=== PATIENT | male | born 1990 | race Caucasian/White ===

== ENCOUNTER 2018-04-10 06:28 | Day surgery (SDC) | payer OTHER ==
--- NOTE | 2018-04-04 13:45 | HP ---
PREOPERATIVE HISTORY AND PHYSICAL: DATE OF ADMISSION/SURGERY: 04/10/18 - OR [facility] DATE OF OFFICE VISIT: 04/04/18 ATTENDING SURGEON: Dr. Delaney Fortune.* (DICTATED BY JOSEF DESIR) PROCEDURE: Right shoulder arthroscopic excision of distal clavicle, decompression, debridement, and possible subpectoral biceps tenodesis. CHIEF COMPLAINT: Right shoulder pain. HISTORY OF PRESENT ILLNESS: Charlie is a 27-year-old male, who presents to the clinic for right shoulder pain due to AC joint arthritis, impingement, and biceps tendinitis. He had a prior right shoulder labral repair. He has failed conservative measures and therefore agreed to undergo right shoulder arthroscopic excision of distal clavicle, decompression, debridement, and possible subpectoral biceps tenodesis with Dr. Fortune on 04/10/18. PAST MEDICAL HISTORY: High cholesterol. PAST SURGICAL HISTORY: Right shoulder surgery, gynecomastia procedure, right knee surgery, and rhinoplasty. The patient denies prior complications with anesthesia. MEDICATIONS: 1. Finasteride 5 mg one-half by mouth daily. 2. Fish oil daily. 3. Vitamin D daily. 4. Iron daily. ALLERGIES: No known drug allergies. FAMILY HISTORY: Positive for diabetes. Denies family history of DVT or PE. SOCIAL HISTORY: He is a student. He quit smoking 7 years ago. He reports occasional alcohol consumption. He is right-hand dominant. REVIEW OF SYSTEMS: A 14-point review of systems was reviewed with the patient. Positive for current complaint, otherwise negative. Denies fever, chills, chest pain, shortness of breath, history of DVT or PE, history of bleeding disorder. PHYSICAL EXAMINATION GENERAL: A 27-year-old well-developed, well-nourished male, in no acute distress. VITAL SIGNS: Height 67.5, weight 159, pulse 72, blood pressure 111/74, temperature 96.5, BMI 24.5. HEENT: Normocephalic, atraumatic. PERRLA. Throat clear. NECK: Supple. PULMONARY: Lungs are clear to auscultation bilaterally. No wheezing, rhonchi, or rales. CARDIAC: Regular rate and rhythm. S1, S2. No murmurs, gallops, or rubs. No edema. ABDOMEN: Positive bowel sounds. Soft, nontender. NEURO: Alert and oriented x3. Cranial nerves grossly intact. MUSCULOSKELETAL: Right upper extremity: Skin is intact. No warmth or erythema. Forward flexion and abduction to 180, external rotation to 75, internal rotation to T10. Tenderness to palpation over the AC joint and bicipital groove. Positive impingement, Speed, [place], [place]. +5/5 strength to rotator cuff testing. +2 radial pulse. Sensation intact to light touch distally. DIAGNOSTIC STUDIES: MR arthrogram revealed superior labral changes, rotator cuff is intact, AC joint arthritis, and fluid along the biceps. IMPRESSION: Right shoulder acromioclavicular joint arthritis, impingement, and biceps tendinitis. PLAN: The patient is scheduled to undergo a right shoulder arthroscopic excision of distal clavicle, decompression, debridement, and possible subpectoral biceps tenodesis with Dr. Fortune on 04/10/18. Percocet will be used for postop pain management and Keflex for antibiotic prophylaxis since he has had prior shoulder surgery. The patient will follow up 10 to 14 days postop for followup and suture removal. JOSEF DESIR [id number]/[facility] #: [id number] ADE
[~2018-04-10 06:28] MED LIST: Buffered Lidocaine 1% SYRIN* 1 ML/SYRINGE INTRADERM ONE; Dexamethasone IV* 4 MG/ML 1 ML (4 MG) IV SLOW PU ONE; Dexamethasone IV* 4 MG/ML 1 ML (4 MG) ONE; Famotidine IV* 10 MG/ML 2 ML (20 mg) IV ONE; Famotidine IV* 10 MG/ML 2 ML (20 mg) ONE; Lactated Ringers 1000 ML Bag* 1,000 ML IV SCH; ceFAZolin 2 GM PREMIX in ORs 2 GM/50 ML BAG IVPB ONE
[2018-04-10] MEDS ORDERED: fentaNYL* 50 MCG/ML 2 ML VIAL (100 MCG VIAL) ONE (07:04)
[2018-04-10] MEDS ORDERED: Midazolam* 1 MG/ML 5 ML VIAL (5 MG) ONE (07:05)
[2018-04-10] MEDS ORDERED: Rocuronium* 10 MG/ML VIAL ONE (07:05)
[2018-04-10] MEDS ORDERED: Ropivacaine* 2 MG/ML 20 ML VIAL (0.2%) ONE (07:17)
[2018-04-10] MEDS ORDERED: Lidocaine 1%* 5 ML VIAL ONE ×2 (07:22→07:23)
[2018-04-10] MEDS ORDERED: ROPIVACAINE 5 MG/ML 30 ML BTL (0.5%) ONE (07:22)
[2018-04-10] MEDS ORDERED: Lidocaine 2% PF * 5 ML VIAL ONE (08:24)
[2018-04-10] MEDS ORDERED: Ondansetron INJ* 2 MG/ML VIAL ONE (08:24)
[2018-04-10] MEDS ORDERED: Propofol* 10 MG/ML 20 ML BTL ONE (08:24)
[2018-04-10] MEDS ORDERED: Acetaminophen TAB* 325 MG PO PRN (08:35)
[2018-04-10] MEDS ORDERED: fentaNYL* 50 MCG/ML 2 ML VIAL (100 MCG VIAL) IV PRN (08:35)
[2018-04-10] MEDS ORDERED: Scopolamine 1.5 mg* PATCH TRANSDERM PRN (08:35)
[2018-04-10] MEDS ORDERED: Ketorolac INJ* 30 MG/ML 1 ML VIAL IV PRN (08:35)
[2018-04-10] MEDS ORDERED: Naloxone* 0.4 MG/ML 1 ML VIAL IV PRN (08:35)
[2018-04-10] MEDS ORDERED: DiMENhydriNATE IV* 50 MG/ML VIAL IV PUSH PRN (08:35)
[2018-04-10] MEDS ORDERED: oxyCODONE/Acetamin 5/325 MG* TAB PO PRN (08:35)
[2018-04-10] MEDS ORDERED: PROCHLORPERAZINE INJ 5 MG/ML 2 ML VIAL IV PRN (08:35)
[2018-04-10] MEDS ORDERED: Neostigmine Methylsulfate* 3 MG/3 ML SYRINGE ONE (08:38)
[2018-04-10] MEDS ORDERED: Glycopyrrolate IV* 0.2 MG/ML 1 ML VIAL ONE (08:39)
[2018-04-10] MEDS ORDERED: methylPREDNISolone ACETATE 80* 80 MG/ML 1 ML VIAL ONE (08:41)
[2018-04-10] MEDS ORDERED: Ketorolac INJ* 30 MG/ML 1 ML VIAL ONE (09:17)
[2018-04-10] MEDS ORDERED: Scopolamine 1.5 mg* PATCH ONE (09:17)
[2018-04-10] MEDS ORDERED: oxyCODONE/Acetamin 5/325 MG* TAB ONE (10:11)
[2018-04-10] MEDS ORDERED: Metoclopramide IV* 5 MG/ML 2 ML VIAL ONE (10:23)
[2018-04-10] MEDS ORDERED: PROCHLORPERAZINE INJ 5 MG/ML 2 ML VIAL ONE (10:24)
[2018-04-10 11:18] VITALS: BP 109/75
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
== END 2018-04-10 11:14 | disposition home or self-care (01) ==
LOC: OREAST 06:28
PROVIDERS: ATTEND Orthopaedic Surgery
DX: M75.41 Impingement syndrome of right shoulder (principal); M19.111 Post-traumatic osteoarthritis, right shoulder; M75.21 Bicipital tendinitis, right shoulder; Z87.891 Personal history of nicotine dependence; G89.18 Other acute postprocedural pain; K21.9 Gastro-esophageal reflux disease without esophagitis
CPT/HCPCS: 88304; A9270-GY; C1776; J0690; J0780; J1040; J1100; J1885; J2250; J2405; J2704; J2710; J2765; J2795; J3010

== ENCOUNTER 2018-11-27 08:40 | Day surgery (SDC) | payer OTHER ==
[~2018-11-27 08:40] MED LIST changes: -Dexamethasone IV* 4 MG/ML 1 ML (4 MG) ONE; -Famotidine IV* 10 MG/ML 2 ML (20 mg) ONE; -ceFAZolin 2 GM PREMIX in ORs 2 GM/50 ML BAG IVPB ONE
[2018-11-27] MEDS ORDERED: ceFAZolin 2 GM in NS PREMIX(*) 2 GM/100 ML BAG IVPB ONE (08:56)
[2018-11-27] MEDS ORDERED: Famotidine IV* 10 MG/ML 2 ML (20 mg) ONE (08:56)
[2018-11-27] MEDS ORDERED: Dexamethasone IV* 4 MG/ML 1 ML (4 MG) ONE (08:56)
[2018-11-27] MEDS ORDERED: fentaNYL* 50 MCG/ML 2 ML VIAL (100 MCG VIAL) ONE (10:51)
[2018-11-27] MEDS ORDERED: Propofol* 10 MG/ML 20 ML BTL ONE (11:02)
[2018-11-27] MEDS ORDERED: Lidocaine 2% PF * 5 ML VIAL ONE (11:02)
[2018-11-27] MEDS ORDERED: ROPIVACAINE 5 MG/ML 30 ML BTL (0.5%) ONE (11:11)
[2018-11-27] MEDS ORDERED: Lidocaine 1% w EPI 1:200,000* SDV 30 ML VIAL ONE (11:11)
[2018-11-27] MEDS ORDERED: Ropivacaine 0.2% * 2 MG/ML VIAL ONE (11:13)
[2018-11-27] MEDS ORDERED: Naloxone* 0.4 MG/ML 1 ML VIAL IV PRN (11:16)
[2018-11-27] MEDS ORDERED: fentaNYL* 50 MCG/ML 2 ML VIAL (100 MCG VIAL) IV PRN (11:16)
[2018-11-27] MEDS ORDERED: DiMENhydriNATE IV* 50 MG/ML VIAL IV PUSH PRN (11:16)
[2018-11-27] MEDS ORDERED: Scopolamine 1.5 mg* PATCH ONE (11:26)
[2018-11-27] MEDS ORDERED: Scopolamine 1.5 mg* PATCH TRANSDERM SCH (12:00)
[2018-11-27] MEDS ORDERED: Ondansetron INJ* 2 MG/ML VIAL ONE (12:05)
[2018-11-27] MEDS ORDERED: Ketorolac INJ* 30 MG/ML 1 ML VIAL ONE (12:05)
[2018-11-27] MEDS ORDERED: oxyCODONE/Acetamin 5/325 MG* TAB ONE (13:19)
[2018-11-27 14:01] VITALS: BP 134/87
--- NOTE | 2018-11-28 04:32 | OP ---
DATE OF OPERATION: 11/27/18 [facility] DATE OF : 86 SURGEON: Delaney Fortune MD. 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 ANESTHESIOLOGIST: Popeye Mancia MD ANESTHESIA: General anesthesia and LMA intubation. PRE-OP DIAGNOSIS: Synovitis of the knee and patellofemoral type of pain. POST-OP DIAGNOSES: 1. Synovitis of the knee and patellofemoral type of pain. 2. Lateral facet compression. OPERATIVE PROCEDURES: 1. Right knee arthroscopy with lysis of adhesions and a small chondroplasty of the medial condyle where the adhesions and scar tissue had rubbed against it. 2. Lateral release. COMPLICATIONS: None. ESTIMATED BLOOD LOSS: Minimal. TOURNIQUET TIME: 0 minutes. IMPLANTS: None. INDICATIONS: Charlie Phipps is a 28-year-old male who has had persistent knee pain for several years. He had a previous right knee arthroscopy with lysis of adhesions and a synovectomy and plica excision. He said he did okay for a while with the knee but then began having pain again anteriorly and on the lateral aspect of the knee. He has failed conservative management. Risks and benefits were discussed at length with the patient and include but are not limited to, bleeding, infection, incomplete relief of symptoms, damage to nerves , vessels, and surrounding structures, wound not healing, risk of DVT. DESCRIPTION OF PROCEDURE: The patient was greeted in the preoperative area by the attending surgeon. Correct extremity was marked and consent was confirmed. The patient was brought back to the operating suite where he was placed in the supine position on the operating table. He then underwent general anesthesia and LMA intubation, after which he was appropriately positioned on the operating table. The an unsterile tourniquet was placed on the right leg and a lateral post positioned. The patient's right leg was then prepped and draped in the usual sterile fashion beginning with chlorhexidine soap, scrub, and alcohol wipe. After an appropriate surgical pause indicating side, site, procedure and administration of antibiotics, the knee was then intraarticularly injected with 1% lidocaine. The anterolateral portal was made using an 11 blade. The scope was inserted in the joint. The knee was examined. The ACL and PCL were intact. The medial meniscus was intact. There was scar tissue that was obviously abrading the medial femoral condyle on the chondral surface which was debrided back. The scar tissue was removed. Hemostatis was obtained using the electrocautery device. There was still some softening of the medial aspect of the medical condyle that was appreciated. The meniscus was intact as well as the medial plateau. The lateral compartment was examined and had grade 0 to 1 changes. The lateral meniscus was intact. The patellofemoral joint was intact and had grade 0 changes, but there was evidence of lateral tracking of the patella as well as of compression of the lateral facet compared to normal knees. After considering the patient's pain and therefore, the decision was made to proceed with lateral release. Therefore, the electrocautery device was used to give him a solid lateral release. The lateral facet was found to be more centrally located afterwards in a more standard manner. The scar tissue was removed and the electrocautery device was used to maintain hemostasis. Final images were obtained. The wounds were copiously irrigated with sterile saline. The knee was thoroughly lavaged. The wounds were irrigated with sterile saline. The portal were closed with 3-0 nylon in an interrupted fashion. Sterile dressings were applied and a Cryo/Cuff. The knee was superficially and intraarticularly injected with .2% ropivocaine. The patient tolerated the procedure well and the patient was transferred to the PACU in stable condition. POST OPERATIVE PLAN: He will be WBAT. ROM as tolerated. Discharged on pain medication and antibiotics due to revision surgery. DVT prophylaxis was considered but deferred due to no previous personal or family history. I will see the patient back in 10-14 days. [id number]/[facility] #: [id number] ADE
== END 2018-11-27 14:00 | disposition home or self-care (01) ==
LOC: OREAST 08:40
PROVIDERS: ATTEND Orthopaedic Surgery
DX: M65.861 Other synovitis and tenosynovitis, right lower leg (principal); M22.2X1 Patellofemoral disorders, right knee; M25.861 Other specified joint disorders, right knee; M25.511 Pain in right shoulder; Z87.891 Personal history of nicotine dependence; K21.9 Gastro-esophageal reflux disease without esophagitis
CPT/HCPCS: A9270-GY; J0690; J1100; J1885; J2001; J2405; J2704; J2795; J3010